=== PATIENT | female | born 1995 | race Caucasian/White ===

== ENCOUNTER 2020-11-08 20:53 | Emergency (ER) | payer SELFPAY ==
[~2020-11-08] VITALS: Ht 175.3 cm; Wt 102.1 kg
[2020-11-08 20:54] VITALS: BP 111/73; Ht 175.3 cm; Wt 102.1 kg
== END 2020-11-08 22:08 | disposition home or self-care (01) ==
LOC: ED 20:53
DX: M79.10 Myalgia, unspecified site (principal); R42 Dizziness and giddiness; R06.02 Shortness of breath; Z20.828 Contact with and (suspected) exposure to other viral communicable diseases